=== PATIENT | male | born 1985 | race Caucasian/White ===

== ENCOUNTER 2023-09-17 08:51 | Emergency (ER) | payer MEDICAID, SELFPAY ==
[2023-09-17 09:00] VITALS: BP 115/83; PULSE 69; RESP 18; TEMP 37.1; O2SAT 98; BMI 28.0
--- NOTE | 2023-09-17 09:29 | ED.SKABFB1 ---
HPI - Skin/Abscess/Foreign Bdy General Chief complaint: Skin/Abscess/Foreign Body Stated complaint: RASH Time Seen by Provider: 09/17/23 08:53 Source: patient Mode of arrival: walk-in Limitations: no limitations History of Present Illness HPI narrative: 38-year-old male presents for rash. Its at the left wrist area and it is pruritic and this time he had it for 3 to 4 weeks. He has had this on several occasions in the past and he had some leftover Lidex cream and he used it and it seemed to be getting better. He denies wearing any jewelry in this area prior to the rash starting. He has been diagnosed with contact dermatitis in the past. It is nowhere else on his body and its continuous. Related Data Previous Rx's Medication Instructions Recorded fluocinonide 0.05 % topical cream 1 applic topical BID PRN rash #60 09/17/23 grams Allergies Allergy/AdvReac Type Severity Reaction Status Date / Time No Known Drug Allergies Allergy Verified 09/17/23 08:59 Review of Systems ROS Narrative A ten point review of systems is negative except as noted above. PFSH PFSH Social History Smoking status: Current every day smoker Exam Narrative Exam Narrative: Nurses note and vital signs reviewed and patient is not hypoxic. General: The patient appears well and in no apparent distress. Patient is resting comfortably on cart. Skin: Warm, dry, no pallor noted. There is erythematous rash present on the left wrist area mostly on the flexor side. No open areas or drainage. It is nowhere else on his body. He has discrete erythematous slightly raised areas. Head: Normocephalic, atraumatic Eye: Normal conjunctiva, no drainage Ears, Nose, Mouth, and Throat: oral mucosa is moist. Nares patent. Cardiovascular: Regular Rate and Rhythm Respiratory: Patient is in no distress, no accessory muscle use, lungs are clear to auscultation, no wheezing, rales or rhonchi Back: non-tender GI: Soft and nontender Musculoskeletal: The patient has no evidence of calf tenderness, no pitting edema, symmetrical pulses noted bilaterally Neurological: A&O, normal speech Psychiatric: Cooperative Constitutional Vital Signs, click to edit/add: Last Vital Signs Temp 98.8 F 09/17/23 09:00 Pulse 69 09/17/23 09:00 Resp 18 09/17/23 09:00 BP 115/83 09/17/23 09:00 Pulse Ox 98 09/17/23 09:00 O2 Del Method Room Air 09/17/23 09:00 Course Vital Signs Vital signs: Vital Signs Temperature 98.8 F 09/17/23 09:00 Pulse Rate 69 09/17/23 09:00 Respiratory Rate 18 09/17/23 09:00 Blood Pressure 115/83 09/17/23 09:00 Pulse Oximetry 98 09/17/23 09:00 Oxygen Delivery Method Room Air 09/17/23 09:00 Temperature 98.8 F 09/17/23 09:00 Pulse Rate 69 09/17/23 09:00 Respiratory Rate 18 09/17/23 09:00 Blood Pressure 115/83 09/17/23 09:00 Pulse Oximetry 98 09/17/23 09:00 Oxygen Delivery Method Room Air 09/17/23 09:00 MDM - Skin/Abscess/Foreign Bdy MDM Narrative Medical decision making narrative: My clinical impression is that this is contact dermatitis. I do not clinically suspect scabies. I see no evidence of a bacterial infection. Treatment diagnosis and follow-up were discussed with the patient. Differential Diagnosis Differential diagnosis: Likely dermatophytosis, urticaria, eczema and contact dermatitis Discharge Plan Discharge Chief Complaint: Skin/Abscess/Foreign Body Clinical Impression: Contact dermatitis Patient Disposition: Home, Self-Care Time of Disposition Decision: 09:20 Condition: Good Mode of Transportation: Private Vehicle Prescriptions / Home Meds: New fluocinonide 0.05 % cream 1 applic topical BID PRN (Reason: rash) Qty: 60 0RF Instructions: Contact Dermatitis (ED) Stand Alone Forms: Portal Instructions Referrals: Physician,Non-Staff, MD [Primary Care Provider] - 1 week
[2023-09-17] MEDS: METHYLPREDNISOLONE SOD SUCC PF 125 MG/2 ML VIAL IM (09:30)
== END 2023-09-17 09:32 | disposition home or self-care (01) ==
PROVIDERS: Emergency Provider Emergency Medicine
DX: L25.9 Unspecified contact dermatitis, unspecified cause (principal); F17.210 Nicotine dependence, cigarettes, uncomplicated
CPT/HCPCS: 96372; 99284; J2930

== ENCOUNTER 2025-01-31 13:45 | Emergency (ER) | payer OTHER, MEDICAID, SELFPAY ==
[2025-01-31 13:56] VITALS: BP 132/87; PULSE 81; TEMP 36.9; O2SAT 93; BMI 28.5
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
--- NOTE | 2025-01-31 14:46 | ECG_ITS ---
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 Measurements Intervals [place] Rate: 65 P: 49 [place]: 122 QRS: 73 QRSD: 88 T: 59 QT: 400 QTc: 411 Interpretive Statements 1100 Sinus rhythm 9110 normal ECG Compared to ECG 02/05/2017 10:00:11 Sinus bradycardia no longer present Electronically Signed On 02-01-2025 13:58:55 EDT by ERIC CURRIE M.D.
[2025-01-31] MEDS: METHYLPREDNISOLONE SOD SUCC PF 125 MG/2 ML VIAL IM (15:12)
[2025-01-31 15:59] VITALS: BP 134/86; PULSE 70; O2SAT 99
== END 2025-01-31 15:59 | disposition home or self-care (01) ==
PROVIDERS: Emergency Provider Emergency Medicine
DX: L25.8 Unspecified contact dermatitis due to other agents (principal); F17.200 Nicotine dependence, unspecified, uncomplicated
CPT/HCPCS: 71045; 93005; 96372; 99284; J2919

== ENCOUNTER 2025-03-22 11:38 | Emergency (ER) | payer MEDICAID, SELFPAY ==
[2025-03-22 11:43] VITALS: BP 146/88; PULSE 69; TEMP 36.5; O2SAT 96; BMI 27.3
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
--- NOTE | 2025-03-22 11:53 | ED_ITS ---
HPI HPI - General Adult General Chief complaint: Skin/Abscess/Foreign Body Stated complaint: ALLERGIC REACTION Time Seen by Provider: 03/22/25 11:46 Source: patient Mode of arrival: walk-in History of Present Illness HPI narrative: 39-year-old male presents for rash. Its on his arms mostly but on most areas of his body and he thinks it is from coming into contact with something at work. It is pruritic. This is an ongoing issue that he had for months. No difficulty breathing or swallowing. No new medications or products. Related Data Previous Rx's ?Medication ?Instructions ?Recorded prednisone 10 mg tablet See Rx Instructions .Route 0 01/31/25 .COMPLEX #30 tabs fluocinonide 0.05 % topical cream 1 applic topical TID PRN rash #60 03/22/25 grams prednisone 10 mg tablet See Rx Instructions .Route 0 03/22/25 .COMPLEX #30 tabs Allergies Allergy/AdvReac Type Severity Reaction Status Date / Time No Known Drug Allergies Allergy Verified 09/17/23 08:59 Opioid HPI Opioid Management Most Recent Opioid Data: Last Pain Scale 4 01/31/25, 14:06 Review of Systems ROS Narrative A ten point review of systems is negative except as noted above. PFSH PFSH Social History Smoking status: Current every day smoker Little interest or pleasure in doing things: not at all Feeling down, depressed, or hopeless: not at all Exam Narrative Exam Narrative: Nurses note and vital signs reviewed and patient is not hypoxic. General: The patient appears in no apparent distress. Patient is resting comfortably on cart. Skin: Warm, dry, no pallor noted. There is erythematous scattered rash present on the many areas of his body, primarily the arms but also on the anterior torso. Head: Normocephalic, atraumatic Eye: Normal conjunctiva, no drainage Ears, Nose, Mouth, and Throat: oral mucosa is moist. Nares patent. Cardiovascular: Regular Rate and Rhythm Respiratory: Patient is in no distress, no accessory muscle use, lungs are clear to auscultation, no wheezing, rales or rhonchi Back: non-tender GI: Soft and nontender Musculoskeletal: No joint swelling Neurological: A&O, normal speech Psychiatric: Cooperative Constitutional Vital Signs, click to edit/add: Last Vital Signs Temp 97.7 F 03/22/25 11:43 Pulse 69 03/22/25 11:43 Resp 20 03/22/25 11:43 BP 146/88 H 03/22/25 11:43 Pulse Ox 96 03/22/25 11:43 Course Vital Signs Vital signs: Vital Signs Temperature 97.7 F 03/22/25 11:43 Pulse Rate 69 03/22/25 11:43 Respiratory Rate 20 03/22/25 11:43 Blood Pressure 146/88 H 03/22/25 11:43 Pulse Oximetry 96 03/22/25 11:43 Temperature 97.7 F 03/22/25 11:43 Pulse Rate 69 03/22/25 11:43 Respiratory Rate 20 03/22/25 11:43 Blood Pressure 146/88 H 03/22/25 11:43 Pulse Oximetry 96 03/22/25 11:43 Medical Decision Making MDM Narrative Medical decision making narrative: My clinical impression is that this is a contact dermatitis and this was discussed with him. He is prescribed prednisone and steroid cream. Treatment diagnosis and follow-up were discussed with the patient. Differential Diagnosis Differential Diagnosis: Contact dermatitis, allergic reaction, poison yamileth Discharge Plan Discharge Chief Complaint: Skin/Abscess/Foreign Body Clinical Impression: Contact dermatitis Patient Disposition: Home, Self-Care Time of Disposition Decision: 11:51 Condition: Good Mode of Transportation: Private Vehicle Prescriptions / Home Meds: New prednisone 10 mg tablet See Rx Instructions .ROUTE .COMPLEX Qty: 30 0RF Rx Instructions: 4 by mouth daily for three days then 3 by mouth daily for three days then 2 by mouth daily for three days then 1 by mouth daily for three days fluocinonide 0.05 % cream 1 applic topical TID PRN (Reason: rash) Qty: 60 0RF No Action prednisone 10 mg tablet See Rx Instructions .ROUTE .COMPLEX Qty: 30 0RF Rx Instructions: 4 by mouth daily for three days then 3 by mouth daily for three days then 2 by mouth daily for three days then 1 by mouth daily for three days Print Language: Puerto Rican Instructions: Contact Dermatitis (ED) Referrals: Physician,Non-Staff, MD [Primary Care Provider] - 1 week
[2025-03-22] MEDS: METHYLPREDNISOLONE SOD SUCC PF 125 MG/2 ML VIAL IM (12:07)
== END 2025-03-22 12:11 | disposition home or self-care (01) ==
PROVIDERS: Emergency Provider Emergency Medicine
DX: L25.9 Unspecified contact dermatitis, unspecified cause (principal); R21 Rash and other nonspecific skin eruption
CPT/HCPCS: 96372; 99284; J2919

== ENCOUNTER 2025-05-15 10:08 | Emergency (ER) | payer MEDICAID, SELFPAY ==
[2025-05-15 10:11] VITALS: BP 100/70; PULSE 82; TEMP 37.1; O2SAT 96; BMI 27.3
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
--- NOTE | 2025-05-15 10:25 | ED.GENADUL1 ---
HPI HPI - General Adult General Chief complaint: Skin/Abscess/Foreign Body Stated complaint: RASH Time Seen by Provider: 05/15/25 10:17 Source: patient Mode of arrival: walk-in History of Present Illness HPI narrative: 40-year-old male presents for rash. It is pruritic and he believes its from coming into contact with hydraulic oil at work. He states he quit his job over the weekend, a few days ago. This has been a recurring issue dating at least back to September of this year. No new medications or other products. Related Data Previous Rx's ?Medication ?Instructions ?Recorded prednisone 10 mg tablet See Rx Instructions .Route 01/31/25 .COMPLEX #30 tabs fluocinonide 0.05 % topical cream 1 applic topical TID PRN rash #60 03/22/25 grams prednisone 10 mg tablet See Rx Instructions .Route 03/22/25 .COMPLEX #30 tabs prednisone 10 mg tablet See Rx Instructions .Route 05/15/25 .COMPLEX #30 tabs Allergies Allergy/AdvReac Type Severity Reaction Status Date / Time No Known Drug Allergies Allergy Verified 09/17/23 08:59 Opioid HPI Opioid Management Most Recent Opioid Data: Last Pain Scale 4 01/31/25, 14:06 Review of Systems ROS Narrative A ten point review of systems is negative except as noted above. PFSH PFSH Social History Smoking status: Current every day smoker Little interest or pleasure in doing things: not at all Feeling down, depressed, or hopeless: not at all Exam Narrative Exam Narrative: Nurses note and vital signs reviewed and patient is not hypoxic. General:The patient appears well and in no apparent distress.Patient is resting comfortably on cart. Skin:Warm, dry, no pallor noted.There are numerous erythematous areas of rash which are raised and on various areas of his body, exposed areas primarily. It is on both arms and stops just above the elbow. There does not seem to be any on his torso. Head:Normocephalic, atraumatic Eye: Normal conjunctiva, no drainage Ears, Nose, Mouth, and Throat: oral mucosa is moist. Nares patent. Cardiovascular:Regular Rate and Rhythm Respiratory:Patient is in no distress, no accessory muscle use, lungs are clear to auscultation, no wheezing, rales or rhonchi Back:non-tender GI: Soft and nontender Musculoskeletal: The patient has no evidence of calf tenderness, no pitting edema, symmetrical pulses noted bilaterally Neurological:A&O, normal speech Psychiatric:Cooperative Constitutional Vital Signs, click to edit/add: Last Vital Signs Temp 98.8 F 05/15/25 10:11 Pulse 82 05/15/25 10:11 Resp 18 05/15/25 10:11 BP 100/70 05/15/25 10:11 Pulse Ox 96 05/15/25 10:11 O2 Del Method Room Air 05/15/25 10:11 Course Vital Signs Vital signs: Vital Signs Temperature 98.8 F 05/15/25 10:11 Pulse Rate 82 05/15/25 10:11 Respiratory Rate 18 05/15/25 10:11 Blood Pressure 100/70 05/15/25 10:11 Pulse Oximetry 96 05/15/25 10:11 Oxygen Delivery Method Room Air 05/15/25 10:11 Temperature 98.8 F 05/15/25 10:11 Pulse Rate 82 05/15/25 10:11 Respiratory Rate 18 05/15/25 10:11 Blood Pressure 100/70 05/15/25 10:11 Pulse Oximetry 96 05/15/25 10:11 Oxygen Delivery Method Room Air 05/15/25 10:11 Medical Decision Making MDM Narrative Medical decision making narrative: My clinical impression is that he has contact dermatitis. He was given IM Solu-Medrol and prescribed prednisone. Treatment diagnosis and follow-up were discussed with the patient. Differential Diagnosis Differential Diagnosis: Allergic reaction, contact dermatitis, poison yamileth Discharge Plan Discharge Chief Complaint: Skin/Abscess/Foreign Body Clinical Impression: Contact dermatitis Patient Disposition: Home, Self-Care Time of Disposition Decision: 10:24 Condition: Good Mode of Transportation: Private Vehicle Prescriptions / Home Meds: New prednisone 10 mg tablet See Rx Instructions .ROUTE .COMPLEX Qty: 30 0RF Rx Instructions: 4 by mouth daily for three days then 3 by mouth daily for three days then 2 by mouth daily for three days then 1 by mouth daily for three days No Action prednisone 10 mg tablet See Rx Instructions .ROUTE .COMPLEX Qty: 30 0RF Rx Instructions: 4 by mouth daily for three days then 3 by mouth daily for three days then 2 by mouth daily for three days then 1 by mouth daily for three days fluocinonide 0.05 % cream 1 applic topical TID PRN (Reason: rash) Qty: 60 0RF prednisone 10 mg tablet See Rx Instructions .ROUTE .COMPLEX Qty: 30 0RF Rx Instructions: 4 by mouth daily for three days then 3 by mouth daily for three days then 2 by mouth daily for three days then 1 by mouth daily for three days Print Language: Moldovan Instructions: Contact Dermatitis (ED) Referrals: Physician,Non-Staff, MD [Primary Care Provider] - 1 week
[2025-05-15] MEDS: METHYLPREDNISOLONE SOD SUCC PF 125 MG/2 ML VIAL IM (10:37)
--- NOTE | 2025-05-15 10:47 | PC.NURSE ---
red raised rash to bilat arms, legs, area to chest and lower abd. small amount of rash to back. pt reports this itching. some areas present like they have vlad picked at.
== END 2025-05-15 10:50 | disposition home or self-care (01) ==
PROVIDERS: Emergency Provider Emergency Medicine
DX: L25.9 Unspecified contact dermatitis, unspecified cause (principal); F17.200 Nicotine dependence, unspecified, uncomplicated
CPT/HCPCS: 96372; 99284; J2919